=== PATIENT | male | born 1965 | race Caucasian/White ===

== ENCOUNTER 2017-04-23 13:03 | Outpatient (RCR) | payer OTHER | END 2017-05-25 14:35 | disposition still patient (30) | LOC: WSOH 13:03 | DX: S56.511A Strain of other extensor muscle, fascia and tendon at forearm level, right arm, initial encounter (principal); X50.0XXA Overexertion from strenuous movement or load, initial encounter; Y99.0 Civilian activity done for income or pay; Z90.89 Acquired absence of other organs ==

== ENCOUNTER 2018-02-25 12:07 | Day surgery (SDC) | payer BC ==
[~2018-02-25] VITALS: Ht 177.8 cm; Wt 78.3 kg
[2018-02-25] VITALS (394 sets, daily range): BP systolic 103–159; BP diastolic 42–106; PULSE 42–64; TEMP 97.5–98.7; O2SAT 94–100
[2018-02-25 12:32] LABS: HEMATOCRIT 41.9 % (42.0-52.0); HEMOGLOBIN 14.5 g/dl (13.5-18.0); MEAN CELL VOLUME 92 fl (80.0-100.0); MEAN CORPUSCULAR HEMOGLOBIN 32 pg (27.0-31.0); MEAN CORPUSCULAR HGB CONC 35 g/dl (33.0-37.0); MEAN PLATELET VOLUME 11.3 fl (7.4-10.4); PLATELET COUNT 166 K/mm3 (130-400); RED BLOOD COUNT 4.57 M/mm3 (4.20-5.60); REDCELL DISTRIBUTION WIDTH-CV 13.1 % (11.5-14.5)
[2018-02-25 12:40] LABS: CALCIUM 9.1 mg/dL (8.4-10.2); CREATININE, serum 0.97 mg/dL (0.66-1.25); POTASSIUM 4.5 mmol/L (3.4-5.0)
[2018-02-25 12:45] LABS: PROTHROMBIN TIME 10.9 SECONDS (9.7-12.8)
[2018-02-25] MEDS ORDERED: PERCOCET 325 MG1 TA2 PO (12:56)
[2018-02-25] MEDS ORDERED: ZESTRIL 20MG TA20 MG PO (12:57)
[2018-02-25] MEDS ORDERED: AMBIEN 10MG10 MG PO (12:57)
[2018-02-25] MEDS ORDERED: NORVASC 5MG5 MG/TAB PO (12:58)
[2018-02-25] MEDS ORDERED: NITROSTAT0.4 MG/TAB SL (12:59)
[2018-02-25] MEDS ORDERED: ASPIRIN E.C. 8181 MG PO (13:00)
[2018-02-25] MEDS ORDERED: LOPRESSOR 225 MG/TAB PO (13:00)
[2018-02-26] VITALS (273 sets, daily range): BP systolic 113–144; BP diastolic 62–71; PULSE 54–58; TEMP 97.7–98.4; O2SAT 93–100
[2018-02-26 05:55] LABS: BASO # 0.1 (0.0-0.2); BASO % 0.6 % (0.0-2.0); EOS # 0.3 (0.0-0.7); EOS % 2.6 % (0-4.0); GRAN # 9.5 (1.4-6.5); GRAN % 75.6 % (42.2-75.2); HEMATOCRIT 43.1 % (42.0-52.0); HEMOGLOBIN 14.8 g/dl (13.5-18.0); LYMPH # 1.8 (1.2-3.4); LYMPH % 14.5 % (20.0-51.0); MEAN CELL VOLUME 92 fl (80.0-100.0); MEAN CORPUSCULAR HEMOGLOBIN 32 pg (27.0-31.0); MEAN CORPUSCULAR HGB CONC 34 g/dl (33.0-37.0); MEAN PLATELET VOLUME 11.8 fl (7.4-10.4); MONO # 0.8 (0.1-0.6); MONO % 6.2 % (1.7-9.3); PLATELET COUNT 160 K/mm3 (130-400); REDCELL DISTRIBUTION WIDTH-CV 13.1 % (11.5-14.5)
[2018-02-26 06:12] LABS: CREATININE, serum 0.89 mg/dL (0.66-1.25); POTASSIUM 4.2 mmol/L (3.4-5.0)
[2018-02-26] MEDS ORDERED: BRILINTA90 MG PO (09:31)
[2018-02-26] MEDS ORDERED: IMDUR 60MG60 MG/TAB PO (09:32)
[2018-02-26] MEDS ORDERED: LIPITOR 40MG TA40 MG PO (09:32)
== END 2018-02-26 10:45 | disposition home or self-care (01) ==
LOC: COL.CAR 12:07 → ICU 15:57 → COL.CAR 02-26 10:45
PROVIDERS: Internal Medicine Cardiovascular Disease; Nurse Practitioner
DX: I25.110 Atherosclerotic heart disease of native coronary artery with unstable angina pectoris (principal); I25.82 Chronic total occlusion of coronary artery; I10 Essential (primary) hypertension; E78.5 Hyperlipidemia, unspecified; F17.210 Nicotine dependence, cigarettes, uncomplicated; M54.9 Dorsalgia, unspecified; G89.29 Other chronic pain; F32.9 Major depressive disorder, single episode, unspecified; M19.90 Unspecified osteoarthritis, unspecified site; Z79.82 Long term (current) use of aspirin; Z80.9 Family history of malignant neoplasm, unspecified; Z82.49 Family history of ischemic heart disease and other diseases of the circulatory system
CPT/HCPCS: OP; C1725; C1760; C1769; C1874; C1887; C1894; C9600; J2250; J3010; Q9967

== ENCOUNTER 2019-03-17 08:41 | Day surgery (SDC) | payer BC ==
[~2019-03-17] VITALS: Ht 177.8 cm; Wt 80.2 kg
[2019-03-17] VITALS (39 sets, daily range): BP systolic 145–171; BP diastolic 53–101; PULSE 51–64; TEMP 97.8–99.3; O2SAT 87–100
[~2019-03-17 08:41] MED LIST: AMBIEN 10MG10 MG PO; ASPIRIN E.C. 8181 MG PO; BRILINTA90 MG PO; IMDUR 60MG60 MG/TAB PO; LIPITOR 40MG TA40 MG PO; LOPRESSOR 225 MG/TAB PO; NITROSTAT0.4 MG/TAB SL; NORVASC 5MG5 MG/TAB PO; PERCOCET 325 MG1 TA2 PO; ZESTRIL 20MG TA20 MG PO
[2019-03-17 09:43] LABS: HEMATOCRIT 41.5 % (42.0-52.0); MEAN CELL VOLUME 95 fl (80.0-100.0); MEAN CORPUSCULAR HEMOGLOBIN 32 pg (27.0-31.0); MEAN CORPUSCULAR HGB CONC 34 g/dl (33.0-37.0); MEAN PLATELET VOLUME 11.8 fl (7.4-10.4); PLATELET COUNT 166 K/mm3 (130-400); RED BLOOD COUNT 4.38 M/mm3 (4.20-5.60); REDCELL DISTRIBUTION WIDTH-CV 13.5 % (11.5-14.5)
[2019-03-17] MEDS ORDERED: LIPITOR 40MG TA40 MG PO (09:43)
[2019-03-17] MEDS ORDERED: ADVIL200 MG PO (09:46)
[2019-03-17] MEDS ORDERED: CIALIS5 MG PO (09:47)
[2019-03-17 09:52] LABS: CALCIUM 8.9 mg/dL (8.4-10.2); CREATININE, serum 0.86 (0.66-1.25); POTASSIUM 4.4 mmol/L (3.4-5.0)
[2019-03-17 09:53] LABS: INR 0.9 (0.8-3.0); PROTHROMBIN TIME 10.7 SECONDS (9.7-12.8)
--- NOTE | 2019-03-17 10:27 | NUR ---
Initial visit; Patient and his thanked Banquet Cook for looking in on him and offering God's blessings prior to his Procedure.
--- NOTE | 2019-03-17 12:45 | NUR ---
PATIENT REFUSING GROIN PREP FOR BACKUP FOR HEART CATH PROCEDURE.
--- NOTE | 2019-03-17 13:00 | NUR ---
ALL MEDICATIONS GIVEN VORB WITH MD. SEE MERGE FOR ALL MEDICATION ADMIN TIMES. SEE MERGE FOR ALL RASS ASSESSMENTS DURING AND POST PROCEDURE. POSITIVE BARBEAU'S TEST IN THE RIGHT WRIST, RADIAL PULSE +2.
--- NOTE | 2019-03-17 13:00 | NUR ---
PATIENT REFUSES CHLORAPREP TO THE GROIN. NOTIFIED MD REGARDING PATIENT REFUSAL.
--- NOTE | 2019-03-17 14:27 | NUR ---
PT ARRIVED IN BED 6 ICU FROM HAND ROUTER OPERATOR ACCOMPANIED BY IRIS LAND HAND ROUTER OPERATOR NURSE. PATIENT ORIENTED TO ROOM. RIGHT FEMORAL SITE ASSESSED WITH HAND ROUTER OPERATOR RN. SITE WAS CLEAN, DRY, INTACT WITH NO BLEEDING NOTED. NO HEMATOMA NOTED. PULSES ASSESSED. UPON FURTHER ASSESSMENT OF PATIENT VITALS, PATIENT ORDERED STAFF OUT OF ROOM TO USE THE URINAL. REFUSES TO FOLLOW COMMANDS TO KEEP LEGS IMMOBILE AND TO NOT RAISE HOB. WILL CONTINUE TO EDUCATE.
--- NOTE | 2019-03-17 14:30 | NUR ---
Patient transported on [facility] to ICU 6 at this time. Patient hooked back up to monitoring equipment, VS stable. Patient denies any pain at this time. Bedside report given to IRIS Shaver. Visualized right groin site and right radial site together. Right groin is soft, nontender, no hematoma noted, no oozing at this time. Dressing is clean, dry, and intact. Pedal pulses +2 bilaterally. Visualized right radial site together, two bandaids in place. Patient refuses to keep bandaids on, and ripped them off. Open to air, no oozing noted. Soft and nontender. Bed in locked and lowest position, call light within reach. Discussed importance of keeping head down on pillow and leg flat with patient and spouse.
--- NOTE | 2019-03-17 14:45 | NUR ---
VITAL SIGNS STABLE. PATIENT REFUSING CATH SITE ASSSESSMENT. PROVIDER AWARE.
--- NOTE | 2019-03-17 14:45 | NUR ---
THIS NURSE AND GEOVANNI RN BACK IN ROOM TO ASSESS RIGHT FEMORAL SITE. PATIENT REFUSED. DISCUSSED THE RISKS AND NEED TO ASSESS FOR BLEEDING AND SITE AND RISK OF INTERNAL BLEEDING. PATIENT REFUSED SEVERAL TIMES AND STATED "I'M IN A MOOD. YOU'RE NOT GONNA WIN AN ARGUMENT WITH ME." ALSO STATED THAT HE WOULD SEE HOW HE FEELS AND WOULD BE LEAVING IN 4 HOURS DESPITE EDUCATION OF RISKS. PATIENT'S INFORMED STAFF OF WANTING TO GET PATIENT DINNER FROM [facility] [place], STAFF INFORMED HER OF NEED FOR A HEART HEALTHY DIET AND THAT SELECTED FOOD OPTION WAS NOT APPROPRIATE. PATIENT DISREGARDED INFORMATION AND LEFT TO GO GET FOOD. STIVEN KOVACS WAS CALLED AND INFORMED OF PATIENT REFUSAL OF CARE. DR. CAAL AND STIVEN KOVACS WILL ROUND AND SEE PATIENT SHORTLY.
--- NOTE | 2019-03-17 15:00 | NUR ---
DR. CAAL AND STIVEN KOVACS AT PATIENT BEDSIDE TO INFORM PATIENT OF RISKS WHEN REFUSING FEMORAL SITE ASSESSMENT. DR CAAL REVIEWED SITUATION WITH THIS RN AND GEOVANNI RN-- STATED THAT PATIENT SAYS THEY WILL "PLAY NICE" AND ALLOW GROIN SITE CHECKS AND IF PATIENT REFUSES, TO INFORM PATIENT THAT "DR. CAAL WANTS US TO CHECK YOUR SITE." DR. CAAL AWARE OF PATIENT'S WILL TO LEAVE AGAINST MEDICAL ADIVCE AND TO ALLOW IT.
--- NOTE | 2019-03-17 15:00 | NUR ---
PATIENT REFUSING CATH SITE ASSESSMENT. VITAL SIGNS STABLE. PROVIDER AWARE.
--- NOTE | 2019-03-17 15:15 | NUR ---
THIS RN AND GEOVANNI RN ENTERED PATIENT ROOM TO ASSESS PT'S FEMORAL SITE. PATIENT REPEATEDLY SAID "NO, I'M GOOD." WHEN ASKED IF WE COULD ASSESS HIS SITE. INFORMED PATIENT THAT DR. CAAL WANTED US TO CHECK HIS FEMORAL SITE TO CHECK FOR BLEEDING. PATIENT AGAIN REFUSED DESPITE REMINDERS THAT HE STATED TO DR. CAAL THAT HE WOULD COOPERATE WITH NURSES. REFUSAL DOCUMENTED. WILL CONTINUE TO MONITOR.
--- NOTE | 2019-03-17 15:15 | NUR ---
PATIENT REFUSES CATH SITE ASSESSMENT. VITAL SIGNS STABLE. PROVIDER AWARE OF SITUATION.
--- NOTE | 2019-03-17 15:30 | NUR ---
PATIENT REFUSES CATH SITE ASSESSMENT. VITALS STABLE. PROVIDER AWARE.
[2019-03-17 16:10] LABS: BASO % 0.4 % (0.0-2.0); EOS # 0.2 (0.0-0.7); EOS % 2.7 % (0-4.0); GRAN # 6.7 (1.4-6.5); GRAN % 74.2 % (42.2-75.2); HEMATOCRIT 40.6 % (42.0-52.0); HEMOGLOBIN 13.8 g/dl (13.5-18.0); LYMPH # 1.6 (1.2-3.4); LYMPH % 17.5 % (20.0-51.0); MEAN CELL VOLUME 93 fl (80.0-100.0); MEAN CORPUSCULAR HEMOGLOBIN 32 pg (27.0-31.0); MEAN CORPUSCULAR HGB CONC 34 g/dl (33.0-37.0); MEAN PLATELET VOLUME 11.5 fl (7.4-10.4); MONO # 0.4 (0.1-0.6); MONO % 4.8 % (1.7-9.3); PLATELET COUNT 157 K/mm3 (130-400); RED BLOOD COUNT 4.36 M/mm3 (4.20-5.60); REDCELL DISTRIBUTION WIDTH-CV 13.4 % (11.5-14.5)
[2019-03-17 16:27] LABS: ALBUMIN 3.8 gm/dL (3.5-5.0); BILIRUBIN,TOTAL 0.4 mg/dL (0.0-1.0); CALCIUM 8.8 mg/dL (8.4-10.2); CREATININE, serum 0.74 (0.66-1.25); POTASSIUM 3.5 mmol/L (3.4-5.0); TOTAL PROTEIN 6.6 gm/dL (6.4-8.2)
--- NOTE | 2019-03-17 16:29 | NUR ---
PATIENT REFUSES CATH SITE ASSESSMENT. VITALS STABLE. PROVIDER AWARE.
--- NOTE | 2019-03-17 16:37 | NUR ---
PATIENT REFUSES CATH SITE ASSESSMENT. VITAL SIGNS STABLE. FAILS TO FOLLOW DIRECTION TO NOT RAISE HIS HEAD. PATIENT REFUSES TO LIE FLAT FOR REMAINDER OF FLAT TIME AND IS SITTING UP. PATIENT AWARE OF RISKS (BREAKING SEAL AND BLEEDING FROM ARTERY) AND THE NEED TO STAY FLAT UNTIL 1830 AND SAYS "I KNOW", REFUSES TO FOLLOW DIRECTION AND IS NONCOMPLIANT WITH ANY ADVICE AND RECOMMENDATIONS. PATIENT HAS TAKEN OFF OXYGEN SENSOR AND HAS RIPPED OFF ID BAND.
--- NOTE | 2019-03-17 16:45 | NUR ---
FROM ROOM WINDOW, PATIENT WAS OBSERVED TO BE SITTING UP AT SIDE OF BED WITH BED ALARMS GOING OFF. PATIENT REMOVED BLOOD PRESSURE CUFF AND WAS ATTEMPTING TO USE URINAL AT SIDE OF BED. PATIENT INFORMED THAT THEY CANNOT SIT AT SIDE OF BED FOR RISK OF BREAKING SEAL AND BLEEDING AT CATH SITE. PATIENT TOLD THIS NURSE AND IRIS GALARZA TO "SHUT UP AND GET THE F--- OUT." AND SAID HE WAS LEAVING WITHIN THE HOUR.
--- NOTE | 2019-03-17 17:00 | NUR ---
PATIENT IS SITTING AT SIDE OF BED. REMOVED BP CUFF. REFUSING TO FOLLOW DIRECTIONS AND IS BECOMING EXTREMELY AGITATED. REFUSES ASSESSMENT OF CATH SITE AND ANY OTHER RECOMMENDATIONS.
--- NOTE | 2019-03-17 17:21 | NUR ---
AT 1705, PATIENT HEARD YELLING FROM ROOM "ARE YOU GONNA TAKE THIS OUT OR AM I GONNA HAVE TO?" UPON HEARING THIS, MYSELF AND IRIS GALARZA ENTERED THE ROOM TO FIND THE PATIENT STANDING AT THE SIDE OF THE BED RIPPING OFF HIS TELEMETRY STICKERS AND POINTING AT HIS IV SITE. NURSES INFORMED PATIENT THAT WE WOULD REMOVE THE IV AND TO NOT TOUCH IT. WHILE I WAS REMOVING THE IV SITE, IRIS GALARZA INFORMED PATIENT THAT HE NEEDED TO SIGN AN AMA FORM TO WHICH THE PATIENT REPLIED "I DON'T HAVE TO SIGN SHIT!" AND CONTINUED TO ANGRILY CONFRONT IRIS GALARZA ABOUT NOT SIGN AMA FORM. PATIENT INFORMED OF THE NEED TO SIGN THIS FORM AND SECURITY WAS CALLED THE PATIENT'S AGITATION LEVEL INCREASED AND WAS POINTING HIS FINGER AT SECURITY AND THE NURSES. I ATTEMPTED TO COVER THE IV SITE WITH GAUZE AND TAPE. PATIENT REFUSED TAPE AND WALKED DOWN THE PEDRO WITH LOOSE GAUZE, DRIPPING BLOOD ALONG THE FLOOR. SECURITY CONVINCED PATIENT TO RETURN TO ROOM TO REDRESS SITE BUT PATIENT ONLY ALLOWED FRESH GAUZE. PATIENT REFUSED TO SIGN AMA FORM BUT WAS TOLD BY IRIS GALARZA OF THE RISKS OF LEAVING AMA TO WHICH THE PATIENT SAID "YEAH, YEAH TALK TO WHOEVER YOU WANT, I'M NOT LISTENING.' PATIENT REFUSED TO TAKE STENT INFORMATION CARDS. PATIENT LEFT THE UNIT AT 1711.
--- NOTE | 2019-03-17 17:31 | NUR ---
A FEW MINUTES AFTER PATIENT LEAVING AMA, HIS ARRIVED ONTO THE UNIT AND WAS INFORMED OF THE SITUATION. PATIENT'S BEGAN TO CRY AND TALKED WITH NURSING STAFF. WAS EDUCATED ON THE NEED TO WATCH FOR BLEEDING AT SITE (SOAKED GAUZE, PALPATING FOR HARDNESS AROUND SITE, DIZZINESS, CHEST PAIN, HEADACHE, JAW PAIN, TO PLACE PRESSURE ABOVE SITE WITH BLEEDING AND CALL 911). VERBALIZED UNDERSTANDING AND TOOK STENT INFORMATION CARDS WITH HER. DR. CAAL WAS CALLED TO INFORM HIM OF PATIENT LEAVING AMA AND THE EVENTS PRECIPITATING. DR. CAAL PLACED VERBAL ORDERS FOR NEW HOME PRESCRIPTIONS RELATED POST-CATH MANAGEMENT TO BE CALLED INTO PATIENT'S HOME PHARMACY. CALLED AND TALKED WITH PATIENT'S WHO AGREED TO ACCOUNT SERVICES SPECIALIST PRESCRIPTIONS.
== END 2019-03-17 17:11 | disposition left against medical advice (07) ==
LOC: COL.CAR 08:41 → ICU 15:23 → COL.CAR 17:11
PROVIDERS: Internal Medicine Cardiovascular Disease; Nurse Practitioner
DX: I25.10 Atherosclerotic heart disease of native coronary artery without angina pectoris (principal); I27.20 Pulmonary hypertension, unspecified; I10 Essential (primary) hypertension; E78.5 Hyperlipidemia, unspecified; Z95.5 Presence of coronary angioplasty implant and graft; F17.210 Nicotine dependence, cigarettes, uncomplicated; N52.9 Male erectile dysfunction, unspecified; Z79.899 Other long term (current) drug therapy; Z79.82 Long term (current) use of aspirin; Z80.9 Family history of malignant neoplasm, unspecified
CPT/HCPCS: OP; C9600; J1644; J2250; J3010

== ENCOUNTER 2019-06-24 08:03 | Day surgery (SDC) | payer BC ==
--- NOTE | 2019-06-23 11:46 | NUR ---
MADE A PRE-PROCEDURE CALL TO PATIENT, LEFT A MESSAGE ASKING HIM TO CALL BACK TO [phone] TO DISCUSS PROCEDURE SCHEDULED FOR TOMORROW AT 0800.
[~2019-06-24] VITALS: Ht 177.8 cm; Wt 79.0 kg
[2019-06-24] VITALS (12 sets, daily range): BP systolic 111–182; BP diastolic 52–107; PULSE 52–96; TEMP 98.5
[~2019-06-24 08:03] MED LIST changes: +ADVIL200 MG PO; +CIALIS5 MG PO
[2019-06-24 08:41] LABS: HEMATOCRIT 45.4 % (42.0-52.0); HEMOGLOBIN 15.3 g/dl (13.5-18.0); MEAN CELL VOLUME 95 fl (80.0-100.0); MEAN CORPUSCULAR HEMOGLOBIN 32 pg (27.0-31.0); MEAN CORPUSCULAR HGB CONC 34 g/dl (33.0-37.0); MEAN PLATELET VOLUME 11.2 fl (7.4-10.4); PLATELET COUNT 173 K/mm3 (130-400); REDCELL DISTRIBUTION WIDTH-CV 12.5 % (11.5-14.5)
[2019-06-24 09:11] LABS: CALCIUM 9.2 mg/dL (8.4-10.2); CREATININE, serum 0.91 (0.66-1.25); POTASSIUM 4.2 mmol/L (3.4-5.0)
[2019-06-24 09:15] LABS: INR 0.9 (0.8-3.0); PROTHROMBIN TIME 10.9 SECONDS (9.7-12.8)
[2019-06-24] MEDS ORDERED: NEXIUM 40MG40 MG PO (09:16)
--- NOTE | 2019-06-24 09:56 | NUR ---
Pt questioning flat time post-heart catheterization. This RN explaining that typical flat time is 4hrs with femoral approach regardless of if PCI conducted. Pt seeming unhappy with this. States "We'll see". Kaycee, RN from [facility] present at this time. This RN explaining reason for flat-time and the dangers of not following physician instructions. Kaycee requesting pt state that he will comply with physician flat time orders. Pt states "maybe, if the doctor will give me medicine to relax me after the procedure". Pt also talking about leaving early following last case after "fighting" with the nurse. Dr Cannon notified of this conversation. Instructions to proceed as planned.
--- NOTE | 2019-06-24 10:02 | NUR ---
SEE MERGE DOCUMENTATION FOR MEDICATION ADMINISTRATION TIMES AND INTRA/POST PROCEDURE SEDATION ASSESSMENTS. ONE TIME DOSE OF VERSED ADMIN PRIOR TO CASE PER PHYSICIAN ORDER D/T PATIENTS SEVERE ANXIETY.
[2019-06-24] MEDS ORDERED: LIPITOR 80MG80 MG PO (10:56)
--- NOTE | 2019-06-24 11:00 | NUR ---
Pt returned to EU 14 per bed s/p heart cath. Pt resting well in bed, at bedside. Safeguard device in place over R F cath site, inflated with 40 mL air.
[2019-06-24] MEDS ORDERED: TOPROL XL 25MG25 MG PO (11:18)
--- NOTE | 2019-06-24 13:05 | NUR ---
Pt resting well in bed after PRN dose of versed given.
--- NOTE | 2019-06-24 13:50 | NUR ---
Pt became belligerent and tried to unhook monitor equipment and get out of bed. Pt stated he was to impatient to wait the 4 hours of bedrest. Pt offered anxiety medication to help him relax for the full 4 hour bed rest. PRN dose of versed given.
--- NOTE | 2019-06-24 14:05 | NUR ---
Pt stated he wanted to go home and attempted to get out of bed. Pt requested anxiety medication, PRN dose of versed given to pt.
--- NOTE | 2019-06-24 15:15 | NUR ---
Pt has ambulated, voided and betsy PO intake s n/v. Pt refused to let me assess R groin site after ambulation. Pt very agitated and kept saying "I'm ready to leave". PIV removed with catheter intact.
--- NOTE | 2019-06-24 15:25 | NUR ---
Pt refused w/c for discharge. Pt left unit per ambulation and escorted to car with nurse and .
== END 2019-06-24 15:55 | disposition home or self-care (01) ==
LOC: COL.CAR 08:03
PROVIDERS: Internal Medicine Cardiovascular Disease
DX: I25.10 Atherosclerotic heart disease of native coronary artery without angina pectoris (principal)
CPT/HCPCS: J0690; J1644; J2250; J2405; J3010; Q9967

== ENCOUNTER 2021-05-12 09:36 | Day surgery (SDC) | payer BC ==
[2021-05-12] VITALS (9 sets, daily range): BP systolic 120–160; BP diastolic 60–78; PULSE 15–63; TEMP 98.2
[~2021-05-12] VITALS: Ht 177.8 cm; Wt 72.8 kg
[~2021-05-12 09:36] MED LIST changes: +LIPITOR 80MG80 MG PO; +NEXIUM 40MG40 MG PO; +TOPROL XL 25MG25 MG PO
[2021-05-12] MEDS ORDERED: LIPITOR 80MG80 MG PO (10:35)
[2021-05-12 10:41] LABS: HEMATOCRIT 42.9 % (42.0-52.0); HEMOGLOBIN 14.9 g/dl (13.5-18.0); MEAN CELL VOLUME 95 fl (80.0-100.0); MEAN CORPUSCULAR HEMOGLOBIN 33 pg (27.0-31.0); MEAN CORPUSCULAR HGB CONC 35 g/dl (33.0-37.0); MEAN PLATELET VOLUME 10.9 fl (7.4-10.4); PLATELET COUNT 189 K/mm3 (130-400); RED BLOOD COUNT 4.53 M/mm3 (4.20-5.60); REDCELL DISTRIBUTION WIDTH-CV 13.4 % (11.5-14.5)
[2021-05-12 10:48] LABS: INR 1.1 (0.8-3.0); PROTHROMBIN TIME 11.8 SECONDS (9.7-12.8)
[2021-05-12 10:49] LABS: CALCIUM 9.5 mg/dL (8.4-10.2); CREATININE, serum 1.03 (0.66-1.25); POTASSIUM 4.2 mmol/L (3.4-5.0)
[2021-05-12 10:51] LABS: PARTIAL THROMBOPLASTIN TIME 30.4 SECONDS (26.0-37.0)
--- NOTE | 2021-05-12 11:16 | NUR ---
SEE MERGE FOR ALL MEDICATION ADMINISTRATION TIMES, INTRA AND POST SEDATION ASSESSMENTS
--- NOTE | 2021-05-12 13:22 | NUR ---
Pt is back from lab support service tech. bs report from luther escobedo. pt is drowsy, alert and oriented, pwd, TR band to rt wrist. cms intact distal pt and updated on poc. lunch ordered. call light in reach. NSR/SB on monitor
--- NOTE | 2021-05-12 16:03 | NUR ---
Pt is ready for departure. Pt did well during his discharge. TR band has been deflated with no problem. site dressed with bandaid, folded 2x2 and coban. Pt has been up and ambulatory in his room. I have reviewed dc/fu instructions with pt and / They both verbalize understanding. IV dc'd with cath intact, dressing applied. Pt escorted to exit via wheelchair.
== END 2021-05-12 17:09 | disposition home or self-care (01) ==
LOC: COL.CAR 09:36
PROVIDERS: Internal Medicine Cardiovascular Disease
DX: I25.119 Atherosclerotic heart disease of native coronary artery with unspecified angina pectoris (principal); I25.10 Atherosclerotic heart disease of native coronary artery without angina pectoris; I65.29 Occlusion and stenosis of unspecified carotid artery; I10 Essential (primary) hypertension; I65.23 Occlusion and stenosis of bilateral carotid arteries; F32.9 Major depressive disorder, single episode, unspecified; F17.210 Nicotine dependence, cigarettes, uncomplicated
CPT/HCPCS: J1644; J2250; J3010

== ENCOUNTER → 2021-06-03 | Outpatient (CLI) | payer BC | LOC: COL.RAD 07:54 | DX: I65.22 Occlusion and stenosis of left carotid artery (principal) | CPT/HCPCS: Q9967 ==